=== PATIENT | female | born 1940 | race Caucasian/White ===

== ENCOUNTER 2017-05-12 13:34 | Emergency (ER) | payer MEDICARE, MEDICAID ==
--- NOTE | 2017-05-12 13:58 | ER Document Report ---
ED Medical Screen (RME) - General Chief Complaint: High Blood Pressure Stated Complaint: LEFT HAND INJURY Time Seen by Provider: 05/12/17 13:53 Mode of Arrival: Ambulatory Information source: Patient Notes: 76-year-old female with a history of hypertension and was referred to the emergency room for a laceration of the left hand. Apparently it hit the hand on an object. His pain to the left hand. TRAVEL OUTSIDE OF THE [place] IN LAST 30 DAYS: No - HPI Onset: Just prior to arrival Onset/Duration: Gradual Quality of pain: No pain Severity: None Pain Level: Denies Associated Symptoms: None Exacerbated by: Denies Relieved by: Denies Similar symptoms previously: No Recently seen / treated by doctor: No - Related Data Smoking: Non-smoker Frequency of alcohol use: None Drug Abuse: None Allergies/Adverse Reactions: No Known Allergies Allergy (Verified 05/12/17 13:38) Past Medical History - General Information source: Patient - Social History Cigarette use (# per day): No Chew tobacco use (# tins/day): No Frequency of alcohol use: None Drug Abuse: None Lives with: Family Family history: Reviewed & Not Pertinent - Past Medical History Cardiac Medical History: Reports: Hx Congestive Heart Failure, Hx Hypertension Pulmonary Medical History: Reports: Hx COPD EENT Medical History: Reports: None Neurological Medical History: Reports: None Endocrine Medical History: Reports: None Renal/ Medical History: Denies: Hx Peritoneal Dialysis Malignancy Medical History: Reports: None GI Medical History: Reports: None Musculoskeltal Medical History: Reports Hx Arthritis Psychiatric Medical History: Reports: None Surgical Hx: Other - Noncontributory Review of Systems - Review of Systems Constitutional: denies: Chills, Fever EENT: No symptoms reported Cardiovascular: No symptoms reported Respiratory: No symptoms reported Musculoskeletal: See HPI Physical Exam - Vital signs Vitals: Temp Pulse Resp BP Pulse Ox 97.8 F 67 18 246/68 H 93 05/12/17 13:38 05/12/17 13:38 05/12/17 13:38 05/12/17 13:38 05/12/17 13:38 Notes: Physical exam: GENERAL: 6-year-old female, alert and oriented 3, no acute distress HEAD: Atraumatic, normocephalic. EYES: Pupils equal round and reactive to light, extraocular movements intact, sclera anicteric, conjunctiva are normal. ENT: Moist mucous membranes. NECK: Normal range of motion, supple LUNGS: Breath sounds clear to auscultation bilaterally and equal. No wheezes rales or rhonchi. HEART: Regular rate and rhythm without murmurs, rubs or gallops. ABDOMEN: Soft, normoactive bowel sounds. No tenderness to palpation. No guarding, no rebound. No masses appreciated. EXTREMITIES: To the left hand without any hand tenderness to palpation. Patient does have significant swelling over the distal metacarpals to 3 and 4 on the left side extending over the MCP joints. There is normal range of motion and non-tenderness. Patient does have swelling over the distal right radius with full range of motion of the wrist and no tenderness to palpation. NEUROLOGICAL: Cranial nerves II through XII grossly intact. Normal speech, normal gait. PSYCH: Normal mood, normal affect. SKIN: Bruising to the right distal radius without any pain. Skin tear over the dorsal aspect of the left hand. It appears superficial. Course - Vital Signs Vital signs: Temp Pulse Resp BP Pulse Ox 97.8 F 70 19 214/144 H 95 05/12/17 13:38 05/12/17 15:10 05/12/17 15:10 05/12/17 15:10 05/12/17 15:10 Doctor's Discharge - Discharge Clinical Impression: left hand skin tear Condition: Stable Disposition: HOME, SELF-CARE Instructions: Skin Tear ([facility]) Additional Instructions: Note: Injury to the left hand is consistent with a skin tear. These generally are not amenable to stitching require time to heal. Continue current medicines. The emergency room in 2 days for wound check. Emergency room for any increased pain, swelling or concerns of infection: Increased redness, fever (temperature greater than 100.4). Pressure medicine when back at home Forms: Follow-Up (Wound) Referrals: KAIN GUAJARDO PA-C [Primary Care Provider] - Follow up as needed
--- NOTE | 2017-05-12 14:37 | RADIOLOGY REPORT (SQ) ---
EXAM DESCRIPTION: HAND LEFT 3 VIEWS COMPLETED DATE/TIME: 05/12/2017 2:09 pm REASON FOR STUDY: dorsal skin tear COMPARISON: None. EXAM PARAMETERS: NUMBER OF VIEWS: Three views. TECHNIQUE: AP, lateral and oblique radiographic images acquired of the left hand. LIMITATIONS: None. FINDINGS: MINERALIZATION: Normal. BONES: No acute fracture or dislocation. No worrisome bone lesions. JOINTS: No effusions. SOFT TISSUES: There is apparent soft tissue injury along the ulnar aspect of the hand. OTHER: No other significant finding. IMPRESSION: Soft tissue injury without evidence for fracture P TECHNICAL DOCUMENTATION: JOB ID: [id number] [employer]- All Rights Reserved
[2017-05-12 19:26] VITALS: BP 214/144
== END 2017-05-12 15:10 | disposition home or self-care (01) ==
LOC: ER 13:34
DX: S61.412A Laceration without foreign body of left hand, initial encounter (principal); S50.11XA Contusion of right forearm, initial encounter; W22.8XXA Striking against or struck by other objects, initial encounter; I10 Essential (primary) hypertension; J44.9 Chronic obstructive pulmonary disease, unspecified
CPT/HCPCS: 99283

== ENCOUNTER 2018-12-12 02:09 | Inpatient (IN) | payer MEDICARE, MEDICAID ==
[2018-12-12] MEDS ORDERED: ONDANSETRON 4 MG TAB.RAPDIS PO ONE (02:12)
[2018-12-12] MEDS ORDERED: ONDANSETRON HCL INJ/PF 4 MG/2 ML SDV IV ONE (03:33)
[2018-12-12 05:05] LABS: HEMATOCRIT 34.6 % (36.0-47.0); HEMOGLOBIN 12.3 g/dL (12.0-15.5); MEAN CORPUSCULAR HEMOGLOBIN 30.2 pg (27.0-33.4); MEAN CORPUSCULAR HGB CONC 35.6 g/dL (32.0-36.0); MEAN CORPUSCULAR VOLUME 85 fl (80-97); PLATELET COUNT 225 10^3/uL (150-450); RED BLOOD COUNT 4.09 10^6/uL (3.72-5.28); RED CELL DISTRIBUTION WIDTH 13.4 % (11.5-14.0); WHITE BLOOD COUNT 6.6 10^3/uL (4.0-10.5)
[2018-12-12 05:16] LABS: ALANINE AMINOTRANSFERASE 26 U/L (9-52); ALBUMIN 4.4 g/dL (3.5-5.0); ALKALINE PHOSPHATASE 142 U/L (38-126); ANION GAP 13 (5-19); ASPARTATE AMINO TRANSFERASE 58 U/L (14-36); BILIRUBIN,DIRECT 0.4 mg/dL (0.0-0.4); BILIRUBIN,TOTAL 0.8 mg/dL (0.2-1.3); BLOOD UREA NITROGEN 12 mg/dL (7-20); CALCIUM 9.4 mg/dL (8.4-10.2); CHLORIDE 61 mmol/L (98-107); GLUCOSE 122 mg/dL (75-110); POTASSIUM 4.4 mmol/L (3.6-5.0); TOTAL PROTEIN 7.8 g/dL (6.3-8.2)
[2018-12-12 05:33] LABS: ABSOLUTE LYMPHOCYTES# (MANUAL) 0.3 10^3/uL (0.5-4.7); ABSOLUTE MONOCYTES # (MANUAL) 0.4 10^3/uL (0.1-1.4); ABSOLUTE NEUTROPHILS# (MANUAL) 5.9 10^3/uL (1.7-8.2); BASOPHILS % (MANUAL) 0 % (0-2); EOSINOPHILS % (MANUAL) 1 % (0-6); LYMPHOCYTES % (MANUAL) 4 % (13-45); MONOCYTES % (MANUAL) 6 % (3-13); SEGMENTED NEUTROPHILS % (MAN) 89 % (42-78); TOTAL CELLS COUNTED 100
[2018-12-12 05:34] LABS: PLATELET COMMENT ADEQUATE; RBC MORPHOLOGY COMMENT NORMO-CYTIC/CHROMIC
[2018-12-12 05:52] LABS: CARBON DIOXIDE 40 mmol/L (22-30); SODIUM 113.8 mmol/L (137-145)
[2018-12-12] MEDS ORDERED: NORMAL SALINE 1000 ML 1,000 ML IV ONE (06:38)
[2018-12-12 06:40] LABS: APPEARANCE,URINE CLEAR; BILIRUBIN,URINE NEGATIVE (NEGATIVE); COLOR,URINE YELLOW; GLUCOSE, URINE 50 mg/dL (NEGATIVE); KETONES,URINE TRACE mg/dL (NEGATIVE); LEUKOCYTE ESTERASE,URINE NEGATIVE (NEGATIVE); NITRITE,URINE NEGATIVE (NEGATIVE); PROTEIN,URINE 100 mg/dL (NEGATIVE); URINE SPECIFIC GRAVITY 1.011; UROBILINOGEN,URINE NEGATIVE mg/dL (<2.0)
--- NOTE | 2018-12-12 08:30 | RADIOLOGY REPORT (SQ) ---
EXAM DESCRIPTION: CT ABD/PELVIS WITH IV ONLY COMPLETED DATE/TIME: 12/12/2018 8:07 am REASON FOR STUDY: LLQ pain, vomiting and diarrhea COMPARISON: None. TECHNIQUE: CT scan of the abdomen and pelvis performed using helical scanning technique with dynamic intravenous contrast injection. No oral contrast. Images reviewed with lung, soft tissue, and bone windows. Reconstructed coronal and sagittal MPR images reviewed. Delayed images for evaluation of the urinary system also acquired. All images stored on PACS. All CT scanners at this facility use dose modulation, iterative reconstruction, and/or weight based d osing when appropriate to reduce radiation dose to as low as reasonably achievable (ALARA). [facility]: Dose Right [facility]: CareDose [facility]: Dose Right [facility]: Teradose 4D [facility]: [employer] CONTRAST TYPE AND DOSE: contrast/concentration: Isovue 350.00 mg/ml; Total Contrast Delivered: 67.0 ml; Total Saline Delivered: 45.0 ml RENAL FUNCTION: GFR > 60. RADIATION DOSE: CT Rad equipment meets quality standard of care and radiation dose reduction techniq ues were employed. CTDIvol: 6.0 - 8.4 mGy. DLP: 671 mGy-cm.. LIMITATIONS: None. FINDINGS: LOWER CHEST: There is a partially imaged ground-glass nodule of the right lung base on the most superior image of the axis series (series 3, image 1). LIVER: There are ill-defined, low-attenuation lesions of the liver. SPLEEN: Normal size. No focal lesions. PANCREAS: No masses. No significant calcifications. No adjacent inflammation or peripancreatic fluid collections. Pancreatic duct not dilated. GALLBLADDER: Tiny calcified gallstones or calcified sludge. ADRENAL GLANDS: No significant masses or asymmetry. RIGHT KIDNEY AND URETER: No solid masses. No significant calcifications. No hydronephrosis or hyd roureter. LEFT KIDNEY AND URETER: No solid masses. No significant calcifications. No hydronephrosis or hydr oureter. AORTA AND VESSELS: No aneurysm. No dissection. Renal arteries, SMA, celiac without stenosis. RETROPERITONEUM: No retroperitoneal adenopathy, hemorrhage or masses. BOWEL AND PERITONEAL CAVITY: Small hiatal hernia. No masses or inflammatory changes. No free fluid or peritoneal masses. APPENDIX: Normal. PELVIS: No mass. No free fluid. Normal bladder. Pessary present in the vagina. ABDOMINAL WALL: No masses. No hernias. BONES: There is extensive sclerotic osseous metastatic disease with high-grade wedge deformity of the T12 vertebral body and superior endplate deformity the L2 vertebral body. These findings are new co mpared to most recent prior radiographs of the lumbar spine dated 04/08/2013 although age indeterminate . OTHER: No other significant finding. IMPRESSION: 1. No acute CT findings to explain abdominal pain. 2. Advanced metastatic malignancy with extensive sclerotic osseous metastatic disease and probable l iver masses, primary lesion not identified on this examination. Correlate with clinical history. 3. High-grade wedge deformity of the T12 vertebral body and superior endplate deformity the L2 verte bral body, presumably pathologic secondary to metastatic malignancy. These findings are new compared to most recent prior radiographs of the lumbar spine dated 04/08/2013 although age indeterminate. TECHNICAL DOCUMENTATION: JOB ID: [id number] Quality ID # [id number]: Final reports with documentation of one or more dose reduction techniques (e.g., Au tomated exposure control, adjustment of the mA and/or kV according to patient size, use of iterative reconstruction technique) 2010 [employer]- All Rights Reserved Reading location - IP/workstation name: [email or web address]
--- NOTE | 2018-12-12 09:36 | ER Document Report ---
Entered by NICHO DENNISON SCRIBE 12/12/18 0716 Acting as scribe for:JAYNE JACOB DO ED GI/ - General Chief Complaint: Nausea/Vomiting Stated Complaint: VOMITING,ABDOMINAL PAIN Time Seen by Provider: 12/12/18 06:10 Notes: 7-year-old female who presents to the emergency department today with complaints of vomiting and diarrhea since 1830 last evening. Granddaughter at bedside states that the patient feels like "she is not going to the bathroom" but every time she does she is having watery diarrhea. Granddaughter also states that the patient has been doing a "chewing motion like she has bubblegum" for the last day which is new for her. Granddaughter states that the patient "feels warm" but denies any fevers. Granddaughter denies any blood in the vomit/diarrhea or usage of diuretics. TRAVEL OUTSIDE OF THE [place] IN LAST 30 DAYS: No - Related Data Allergies/Adverse Reactions: No Known Allergies Allergy (Verified 12/12/18 04:46) Past Medical History - General Information source: Patient - Social History Smoking Status: Unknown if Ever Smoked Frequency of alcohol use: None Drug Abuse: None Family History: Reviewed & Not Pertinent Patient has suicidal ideation: No Patient has homicidal ideation: No - Past Medical History Cardiac Medical History: Reports: Hx Congestive Heart Failure, Hx Hypertension Pulmonary Medical History: Reports: Hx COPD GI Medical History: Reports: Hx Gastroesophageal Reflux Disease Musculoskeletal Medical History: Reports Hx Arthritis Psychiatric Medical History: Reports: Hx Depression Past Surgical History: Reports: Hx Cardiac Surgery - stent x 4, Hx Mastectomy - bilat. - Immunizations Hx Diphtheria, Pertussis, Tetanus Vaccination: Yes Review of Systems - Review of Systems Constitutional: denies: Fever EENT: No symptoms reported Cardiovascular: No symptoms reported Respiratory: No symptoms reported Gastrointestinal: See HPI, Diarrhea, Vomiting. denies: Blood in vomit Genitourinary: No symptoms reported Female Genitourinary: No symptoms reported Musculoskeletal: No symptoms reported Skin: No symptoms reported Hematologic/Lymphatic: No symptoms reported Neurological/Psychological: No symptoms reported -: Yes All other systems reviewed and negative Physical Exam - Vital signs Vitals: Temp Pulse Resp BP Pulse Ox 98.5 F 70 20 208/69 H 100 12/12/18 02:11 12/12/18 02:11 12/12/18 02:11 12/12/18 02:11 12/12/18 02:11 - Notes Notes: PHYSICAL EXAM GENERAL: Alert, interacts well. No acute distress. Continuous chewing and smacking of the gums, stops with smiling and tongue protrusion. HEAD: Normocephalic, atraumatic. EYES: Pupils equal, round, and reactive to light. Extraocular movements intact. ENT: Oral mucosa moist, tongue midline. NECK: Full range of motion. Supple. Trachea midline. LUNGS: Clear to auscultation bilaterally, no wheezes, rales, or rhonchi. No respiratory distress. HEART: Regular rate and rhythm. No murmurs, gallops, or rubs. ABDOMEN: Soft, suprapubic and left lower quadrant tenderness with palpation. Non-distended. Bowel sounds present in all 4 quadrants. No guarding, rigidity, or rebound. EXTREMITIES: Moves all 4 extremities spontaneously. No edema, radial and dorsalis pedis pulses 2/4 bilaterally. No cyanosis. NEUROLOGICAL: Believes it is 1999 and is unable to name the president, alert to place and person. Normal speech. Cranial nerves II through XII grossly intact. No facial droop, tongue protrudes midline. PSYCH: Normal affect, normal mood. SKIN: Warm, dry, normal turgor. No hair growth on lower extremities, skin changes consistent with neuropathy and decreased circulation from diabetes mellitus. Course - Re-evaluation Re-evalutation: 12/12/18 09:28 If you have a pharmacy by EMS director medical safety is director software quality assurance CBC unremarkable, CMP shows markedly low sodium at 113.8, elevated CO2 at 40, glucose is actually normal at 122, LFTs show an AST of 58 and alkaline phosphatase at 142. Urinalysis is trace ketones otherwise unremarkable. CT scan of the abdomen pelvis was ordered due to vomiting and diarrhea as well as abdominal pain in the 77-year-old lady it was also ordered to look for metastatic disease in the setting of hyponatremia and some to his cancer. It did not show any infection but it did show extensive metastatic disease both in the bones and in the liver. Patient's breast cancer was fully treated 14 years ago, she previously saw Dr. Engel and would like to see Dr. Engel again. I did notify her nurse of the pending consult. I also discussed the patient with Dr. Bhatt who agreed to accept the patient to his service on the telemetry care unit. Initially patient was gently treated with normal saline to help to start correcting her sodium. I do not see any acute alteration in her mental status that would necessitate immediate treatment with hypertonic saline. She is oriented to person and place but not to time. The lipsmacking does resolve with prompting. I do not think this is a seizure equivalent at this time. Family also states that her mental status has been improving. - Vital Signs Vital signs: Temp Pulse Resp BP Pulse Ox 98.3 F 70 14 130/48 H 100 12/12/18 07:11 12/12/18 02:11 12/12/18 16:01 12/12/18 16:01 12/12/18 14:01 - Laboratory Result Diagrams: 12/12/18 04:36 12/12/18 04:36 Laboratory results interpreted by me: 12/12/18 12/12/18 12/12/18 04:36 04:36 06:25 Hct 34.6 L Seg Neuts % (Manual) 89 H Lymphocytes % (Manual) 4 L Abs Lymphs (Manual) 0.3 L Sodium 113.8 L* Chloride 61 L Carbon Dioxide 40 H* Creatinine 0.46 L Glucose 122 H AST 58 H Alkaline Phosphatase 142 H Urine Protein 100 H Urine Glucose (UA) 50 H Urine Ketones TRACE H Discharge - Discharge Clinical Impression: Hyponatremia, Metastases to the liver, Nausea vomiting and diarrhea Condition: Fair Disposition: ADMITTED INPATIENT Admitting Provider: Hospitalist - [facility] Unit Admitted: Telemetry Scribe Attestation: 12/12/18 16:36 I personally performed the services described in the documentation, reviewed and edited the documentation which was dictated to the scribe in my presence, and it accurately records my words and actions. I personally performed the services described in the documentation, reviewed and edited the documentation which was dictated to the scribe in my presence, and it accurately records my words and actions.
[2018-12-12] MEDS ORDERED: ACETAMINOPHEN 325 MG TABLET PO PRN (13:23)
[2018-12-12] MEDS ORDERED: NORMAL SALINE 1000 ML 1,000 ML IV PRN (13:23)
[2018-12-12] MEDS: HEPARIN SOD (PORCINE) 5,000 UNIT/ML 1 ML SYRINGE SUBCUT SCH ×2 (14:27→22:29)
[2018-12-12] MEDS ORDERED: IPRATROPIUM/ALBUTEROL 0.5-2.5 MG/3 ML AMPUL NEB PRN ×2 (18:26→19:32)
[2018-12-12] MEDS ORDERED: (PENDING PHARMACY ID) (Azilsartan Med/Chlorthalidone [Edarbyclor 40-12.5 Mg Tablet] 1 TAB) PO SCH (19:00)
[2018-12-12] MEDS ORDERED: HYDRALAZINE HCL INJ/PF 20 MG/1 ML SDV IV ONE (19:00)
[2018-12-12] MEDS: FAMOTIDINE 20 MG TABLET PO SCH (19:09)
[2018-12-12] MEDS: LANSOPRAZOLE 30 MG TAB.RAP.DR PO SCH (19:09)
[2018-12-12] MEDS ORDERED: ALBUTEROL SULFATE 0.083% NEB 2.5 MG/3 ML AMPUL NEB PRN (19:57)
--- NOTE | 2018-12-12 20:19 | PDOC H&P ---
History of Present Illness Admission Date/PCP: 12/12/18 09:48 Vincenzo sow Patient complains of: Altered balance, vomiting, diarrhea and lip smacking History of Present Illness: RUDDY MACIEL is a 77 year old female who presented to her primary care physician about 4 weeks ago for breathing issues. A chest x-ray was done. Several lesions identified in the spine area. The patient did undergo a follow- up MRI of the spine and this revealed abnormalities. At that time the patient did have blood work. Her primary care provider told her that her sodium was low. He suggested salt tablets. Unfortunately the patient developed gait imbalance and confusion. She was experiencing diarrhea and vomiting. Assessment in the hospital revealed a sodium of 113.8. CT scan of the abdomen and pelvis showed multiple metastatic lesions. The patient will be admitted for hyponatremia. Past Medical History Cardiac Medical History: Reports: Congestive Heart Failure, Hypertension Pulmonary Medical History: Reports: Chronic Obstructive Pulmonary Disease (COPD) Endocrine Medical History: Reports: None Renal/ Medical History: Reports: None Malignancy Medical History: Reports: Breast Cancer GI Medical History: Reports: Gastroesophageal Reflux Disease, Other - Rectal prolapse Musculoskeltal Medical History: Reports: Arthritis Psychiatric Medical History: Reports: Depression Past Surgical History Past Surgical History: Reports: Mastectomy - bilat., Orthopedic Surgery - Foot surgery Social History Information Source: Patient, Relative Lives with: Family Smoking Status: Former Smoker Last Time Smoked: 14 years ago Frequency of Alcohol Use: None Hx Recreational Drug Use: No Drugs: None Hx Prescription Drug Abuse: No - Advance Directive Resuscitation Status: Full Code Surrogate healthcare decision maker:: Unfortunately, despite the patient's daughter being a hospice nurse, she was unable to decide on a CODE STATUS. Because there was in decision by default the patient will be a full code. She did say that in the past she believed that her mother wanted no heroic measures. I will have palliative care see the patient. Family History Family History: Malignancy - Multiple relatives affected. Different cancers including colon, throat and breast Parental Family History Reviewed: Yes Children Family History Reviewed: Yes Sibling(s) Family History Reviewed.: Yes Medication/Allergy Home Medications: Albuterol Sulfate [Proair HFA Inhalation Aerosol 8.5 gm MDI] 2 puff IH Q4 12/12/18 Atorvastatin Calcium [Lipitor 20 mg Tablet] 20 mg PO DAILY 12/12/18 Azilsartan Med/Chlorthalidone [Edarbyclor 40-12.5 mg Tablet] 1 tab PO DAILY 12/12/18 Citalopram Hydrobromide [Celexa 10 mg Tablet] 10 mg PO DAILY 12/12/18 Esomeprazole Magnesium 40 mg PO DAILY 12/12/18 Ipratropium/Albuterol Sulfate [Duoneb 3 ml Ampul] 3 ml NEB Q6HP PRN 12/12/18 Metoprolol Tartrate [Lopressor 25 mg Tablet] 25 mg PO Q12 12/12/18 Ranitidine HCl [Zantac 150 mg Tablet] 150 mg PO BID 12/12/18 Allergies/Adverse Reactions: No Known Allergies Allergy (Verified 12/12/18 04:46) Review of Systems ROS unobtainable: Due to mental status, Other - Some information obtained from the patient's daughter Constitutional: PRESENT: as per HPI Cardiovascular: ABSENT: chest pain, edema Respiratory: ABSENT: cough, dyspnea Gastrointestinal: PRESENT: vomiting Neurological: PRESENT: abnormal movements, confusion, lack of coordination Psychiatric: PRESENT: depression Physical Exam Vital Signs: Temp Pulse Resp BP Pulse Ox 98.0 F 77 17 190/70 H 98 12/12/18 16:39 12/12/18 16:39 12/12/18 16:39 12/12/18 16:39 12/12/18 16:39 Intake & Output 12/11/18 12/12/18 12/13/18 06:59 06:59 06:59 Intake Total 1000 Balance 1000 Weight 59.4 kg 59.4 kg Exam: Very frail-appearing 77-year-old female who was just medicated and was sleeping soundly. She did not awaken to jostling at the shoulder. Head exam: PRESENT: normocephalic Eye exam: PRESENT: other - Unable to assess Ear exam: PRESENT: normal external ear exam Mouth exam: PRESENT: other - Unable to assess Teeth exam: PRESENT: other - Unable to assess Throat exam: PRESENT: other - Unable to assess Neck exam: PRESENT: other - Unable to assess Respiratory exam: PRESENT: clear to auscultation eleonora, decreased breath sounds. ABSENT: rales, stridor Cardiovascular exam: PRESENT: RRR, +S1, +S2 GI/Abdominal exam: PRESENT: normal bowel sounds, soft Rectal exam: PRESENT: deferred Extremities exam: ABSENT: pedal edema Musculoskeletal exam: PRESENT: normal inspection Neurological exam: PRESENT: other - Patient just medicated and sleeping. Unable to assess Psychiatric exam: PRESENT: other - As above Results Laboratory Results: 12/12/18 04:36 12/12/18 04:36 12/12/18 12/12/18 12/12/18 04:36 04:36 06:25 WBC 6.6 RBC 4.09 Hgb 12.3 Hct 34.6 L MCV 85 MCH 30.2 MCHC 35.6 RDW 13.4 Plt Count 225 Seg Neutrophils % Not Reportable Lymphocytes % Not Reportable Monocytes % Not Reportable Eosinophils % Not Reportable Basophils % Not Reportable Absolute Neutrophils Not Reportable Absolute Lymphocytes Not Reportable Absolute Monocytes Not Reportable Absolute Eosinophils Not Reportable Absolute Basophils Not Reportable Sodium 113.8 L* Potassium 4.4 Chloride 61 L Carbon Dioxide 40 H* Anion Gap 13 BUN 12 Creatinine 0.46 L Est GFR ( Amer) > 60 Est GFR (Non-Af Amer) > 60 Glucose 122 H Calcium 9.4 Total Bilirubin 0.8 AST 58 H ALT 26 Alkaline Phosphatase 142 H Total Protein 7.8 Albumin 4.4 Urine Color YELLOW Urine Appearance CLEAR Urine pH 8.0 Ur Specific [place] 1.011 Urine Protein 100 H Urine Glucose (UA) 50 H Urine Ketones TRACE H Urine Blood NEGATIVE Urine Nitrite NEGATIVE Ur Leukocyte Esterase NEGATIVE Urine WBC (Auto) 1 Urine RBC (Auto) 9 Urine Osmolality 12/12/18 06:25 WBC RBC Hgb Hct MCV MCH MCHC RDW Plt Count Seg Neutrophils % Lymphocytes % Monocytes % Eosinophils % Basophils % Absolute Neutrophils Absolute Lymphocytes Absolute Monocytes Absolute Eosinophils Absolute Basophils Sodium Potassium Chloride Carbon Dioxide Anion Gap BUN Creatinine Est GFR ( Amer) Est GFR (Non-Af Amer) Glucose Calcium Total Bilirubin AST ALT Alkaline Phosphatase Total Protein Albumin Urine Color Urine Appearance Urine pH Ur Specific [place] Urine Protein Urine Glucose (UA) Urine Ketones Urine Blood Urine Nitrite Ur Leukocyte Esterase Urine WBC (Auto) Urine RBC (Auto) Urine Osmolality 421 Impressions: Abdomen/Pelvis CT 12/12/18 06:38 IMPRESSION: 1. No acute CT findings to explain abdominal pain. 2. Advanced metastatic malignancy with extensive sclerotic osseous metastatic disease and probable liver masses, primary lesion not identified on this examination. Correlate with clinical history. 3. High-grade wedge deformity of the T12 vertebral body and superior endplate deformity the L2 vertebral body, presumably pathologic secondary to metastatic malignancy. These findings are new compared to most recent prior radiographs of the lumbar spine dated 04/08/2013 although age indeterminate. Assessment & Plan - Diagnosis (1) Hyponatremia Is this a current diagnosis for this admission?: Yes Plan: Clearly this is a chronic issue. The question is whether it has been decreasing slowly (which is more likely the case) or it was mild and then experienced a precipitous drop. We will institute a fluid restriction and utilize normal saline. If we do not make any progress we may use slightly hypertonic saline (1.5%). I do not want to volume overload the patient. Urine sodium, urine osmolality and electrolytes every 6 hours have been ordered. With the discovery of multiple metastases I will order a CT scan of the brain. She did have IV contrast for the CT scan this morning and so I will wait 1-2 days. Brain metastases would be an obvious cause. In addition she is on a selective serotonin reuptake inhibitor and this in fact can cause hyponatremia. (2) Metastatic breast cancer Is this a current diagnosis for this admission?: Yes Plan: With the patient's primary diagnosis of breast cancer 14 years ago it is hard to know if the diffusely metastatic disease present currently originated from her breast cancer or a new primary. The patient did see Dr. Engel for her breast cancer. The emergency room physician did talk to Dr. Engel and she has agreed to see the patient therefore I did place a consult. A palliative care consult has been ordered. There was no discussion with the patient's family regarding advanced care planning despite discovering metastatic disease several weeks ago. (3) Acute encephalopathy Is this a current diagnosis for this admission?: Yes Plan: Secondary to severe hyponatremia. As noted above we will obtain a CT scan of the head as rain metastases are a significant possibility. (4) Hypertension Qualifiers: Hypertension type: essential hypertension Qualified Code(s): I10 - Essential (primary) hypertension Is this a current diagnosis for this admission?: Yes Plan: The patient's metoprolol will be continued. The second medication, which is a combination of an angiotensin receptor lance and chlorthalidone, is not available here. I will substitute 50 mg of losartan daily and 12.5 mg of chlorthalidone. We will continue her metoprolol. (5) Chronic obstructive pulmonary disease Qualifiers: COPD type: unspecified COPD Qualified Code(s): J44.9 - Chronic obstructive pulmonary disease, unspecified Is this a current diagnosis for this admission?: Yes Plan: I placed the patient on scheduled nebulizer therapy as well as as needed medications. Continue to monitor respiratory status. Supplemental oxygen if needed. (6) Depression Qualifiers: Depression Type: unspecified Qualified Code(s): F32.9 - Major depressive disorder, single episode, unspecified Is this a current diagnosis for this admission?: Yes Plan: The patient is on citalopram 10 mg daily. This is a small dose and discontinuing it abruptly should not instigate serotonin syndrome. Because SSRI medications can cause hyponatremia I have temporarily held her citalopram. (7) Nausea vomiting and diarrhea Is this a current diagnosis for this admission?: Yes Plan: Possibly secondary to the hyponatremia. Antiemetics will be initiated. (8) Gastroesophageal reflux disease Qualifiers: Esophagitis presence: esophagitis presence not specified Qualified Code(s): K21.9 - Gastro-esophageal reflux disease without esophagitis Is this a current diagnosis for this admission?: Yes Plan: At home the patient is on a proton pump inhibitor as well as H2 blockers. Formulary substitution here will be the lansoprazole and famotidine as opposed to her S omeprazole and ranitidine. - Time Time Spent: 50 to 70 Minutes Medications reviewed and adjusted accordingly: Yes - Inpatient Certification Based on my medical assessment, after consideration of the patient's comorb idities, presenting symptoms, or acuity I expect that the services needed warrant INPATIENT care.: Yes I certify that my determination is in accordance with my understanding of Medicare's requirements for reasonable and necessary INPATIENT services [42 CFR 412.3e].: Yes Medical Necessity: Need Close Monitoring Due to Risk of Patient Decompensation, Need For IV Fluids, Need for Nebulizer Therapy and Monitoring of Response, Risk of Complication if Not Cared For in Hospital
[2018-12-12] MEDS ORDERED: LOSARTAN POTASSIUM 25 MG TABLET PO ONE (20:30)
[2018-12-12] MEDS: IPRATROPIUM/ALBUTEROL 0.5-2.5 MG/3 ML AMPUL NEB SCH (21:18)
[2018-12-12 21:55] LABS: BLOOD UREA NITROGEN 13 mg/dL (7-20); CALCIUM 8.6 mg/dL (8.4-10.2); CARBON DIOXIDE 37 mmol/L (22-30); CHLORIDE 65 mmol/L (98-107); GLUCOSE 123 mg/dL (75-110); POTASSIUM 4.1 mmol/L (3.6-5.0)
[2018-12-12 21:57] LABS: ANION GAP 9 (5-19)
[2018-12-12] MEDS ORDERED: METOPROLOL TARTRATE 25 MG TABLET PO SCH (22:00)
[2018-12-12] MEDS ORDERED: ALBUTEROL SULFATE HFA (90 MCG/PUFF) 200 PUFF/8.5 GM MDI IH SCH (22:00)
[2018-12-12 22:05] LABS: SODIUM 110.8 mmol/L (137-145)
[2018-12-12] MEDS: ATORVASTATIN CALCIUM 20 MG TABLET PO SCH (22:27)
[2018-12-12] MEDS: METOPROLOL TARTRATE 25 MG TABLET PO SCH (22:27)
[2018-12-12] MEDS: ACETAZOLAMIDE 250 MG TABLET PO SCH (22:31)
[2018-12-12] MEDS ORDERED: SODIUM BICARBONATE 650 MG TABLET PO ONE (23:15)
[2018-12-13] MEDS ORDERED: SODIUM BICARBONATE 650 MG TABLET PO ONE (02:15)
[2018-12-13] MEDS: IPRATROPIUM/ALBUTEROL 0.5-2.5 MG/3 ML AMPUL NEB SCH ×4 (02:18→21:59)
[2018-12-13 04:29] LABS: ABSOLUTE LYMPHOCYTES (AUTO) 0.3 10^3/uL (0.5-4.7); ABSOLUTE MONOCYTES (AUTO) 0.6 10^3/uL (0.1-1.4); ABSOLUTE NEUT (AUTO) 4.6 10^3/uL (1.7-8.2); EOSINOPHILS % (AUTO) 0.2 % (0-6); HEMOGLOBIN 10.3 g/dL (12.0-15.5); LYMPHOCYTES % (AUTO) 5.2 % (13-45); MEAN CORPUSCULAR HGB CONC 35.4 g/dL (32.0-36.0); MEAN CORPUSCULAR VOLUME 85 fl (80-97); MONOCYTES % (AUTO) 10.6 % (3-13); PLATELET COUNT 193 10^3/uL (150-450); RED BLOOD COUNT 3.42 10^6/uL (3.72-5.28); RED CELL DISTRIBUTION WIDTH 13.3 % (11.5-14.0); TOTAL CELLS COUNTED % (AUTO) 100 %; WHITE BLOOD COUNT 5.5 10^3/uL (4.0-10.5)
[2018-12-13 04:54] LABS: BLOOD UREA NITROGEN 13 mg/dL (7-20); CALCIUM 8.6 mg/dL (8.4-10.2); CARBON DIOXIDE 37 mmol/L (22-30); CHLORIDE 65 mmol/L (98-107); GLUCOSE 112 mg/dL (75-110); POTASSIUM 3.9 mmol/L (3.6-5.0)
[2018-12-13 04:56] LABS: ANION GAP 9 (5-19)
[2018-12-13 05:10] LABS: SODIUM 111.2 mmol/L (137-145)
[2018-12-13] MEDS: HEPARIN SOD (PORCINE) 5,000 UNIT/ML 1 ML SYRINGE SUBCUT SCH ×3 (05:16→21:58)
[2018-12-13 06:46] LABS: APPEARANCE,URINE CLOUDY; BILIRUBIN,URINE NEGATIVE (NEGATIVE); COLOR,URINE YELLOW; GLUCOSE, URINE NEGATIVE (NEGATIVE); KETONES,URINE NEGATIVE (NEGATIVE); LEUKOCYTE ESTERASE,URINE LARGE (NEGATIVE); NITRITE,URINE NEGATIVE (NEGATIVE); PROTEIN,URINE 100 mg/dL (NEGATIVE); URINE SPECIFIC GRAVITY 1.016; UROBILINOGEN,URINE NEGATIVE mg/dL (<2.0)
[2018-12-13] MEDS ORDERED: CHLORTHALIDONE 25 MG TABLET PO SCH (10:00)
[2018-12-13] MEDS ORDERED: LISINOPRIL 5 MG TABLET PO SCH (10:00)
[2018-12-13] MEDS ORDERED: (PENDING PHARMACY ID) (Citalopram Hydrobromide [Celexa 10 Mg Tablet] 10 MG) PO SCH (10:00)
[2018-12-13] MEDS ORDERED: SODIUM BICARBONATE 650 MG TABLET PO SCH (10:00)
[2018-12-13] MEDS ORDERED: ATORVASTATIN CALCIUM 20 MG TABLET PO SCH (10:00)
[2018-12-13] MEDS: LOSARTAN POTASSIUM 50 MG TABLET PO SCH (10:40)
[2018-12-13] MEDS: ACETAZOLAMIDE 250 MG TABLET PO SCH ×2 (10:42→22:02)
[2018-12-13] MEDS: LANSOPRAZOLE 30 MG TAB.RAP.DR PO SCH ×2 (10:43→18:50)
[2018-12-13] MEDS: FAMOTIDINE 20 MG TABLET PO SCH ×2 (10:43→18:50)
[2018-12-13] MEDS: METOPROLOL TARTRATE 25 MG TABLET PO SCH ×2 (10:43→21:59)
[2018-12-13 12:18] LABS: BLOOD UREA NITROGEN 13 mg/dL (7-20); CALCIUM 8.8 mg/dL (8.4-10.2); CARBON DIOXIDE 38 mmol/L (22-30); CHLORIDE 64 mmol/L (98-107); GLUCOSE 107 mg/dL (75-110); POTASSIUM 4.1 mmol/L (3.6-5.0)
[2018-12-13 12:20] LABS: ANION GAP 11 (5-19)
[2018-12-13] MEDS: SODIUM CHLORIDE 1 GM TABLET PO SCH ×2 (15:12→18:50)
[2018-12-13 15:59] LABS: ANION GAP 10 (5-19); BLOOD UREA NITROGEN 13 mg/dL (7-20); CALCIUM 8.8 mg/dL (8.4-10.2); CARBON DIOXIDE 38 mmol/L (22-30); CHLORIDE 65 mmol/L (98-107); GLUCOSE 127 mg/dL (75-110); POTASSIUM 3.8 mmol/L (3.6-5.0)
[2018-12-13 16:05] LABS: SODIUM 113.1 mmol/L (137-145)
[2018-12-13] MEDS: ATORVASTATIN CALCIUM 20 MG TABLET PO SCH (21:58)
[2018-12-14] MEDS: IPRATROPIUM/ALBUTEROL 0.5-2.5 MG/3 ML AMPUL NEB SCH ×2 (02:26→09:01)
--- NOTE | 2018-12-14 05:12 | PDOC PROGRESS REPORT ---
Subjective Progress Note for:: 12/13/18 Subjective:: Somnolent with brief periods of interaction Reason For Visit: METASTATIC MALIGNANCY,HYPONAREMIA Physical Exam Vital Signs: Temp Pulse Resp BP Pulse Ox 97.9 F 59 L 16 141/59 H 100 12/13/18 20:24 12/14/18 02:00 12/13/18 20:24 12/13/18 20:24 12/13/18 20:24 Intake & Output 12/12/18 12/13/18 12/14/18 06:59 06:59 06:59 Intake Total 1480 900 Output Total 1600 Balance 1480 -700 Weight 59.4 kg 59.4 kg General appearance: PRESENT: no acute distress Respiratory exam: PRESENT: clear to auscultation eleonora. ABSENT: rales, rhonchi, wheezes Cardiovascular exam: PRESENT: RRR, +S1, +S2 GI/Abdominal exam: PRESENT: normal bowel sounds, soft. ABSENT: tenderness Neurological exam: PRESENT: altered - Very somnolent Results Laboratory Results: 12/13/18 04:08 12/13/18 15:30 12/13/18 12/13/18 12/13/18 03:00 04:08 11:35 Sodium 111.2 L* 113.0 L* Potassium 3.9 4.1 Chloride 65 L 64 L Carbon Dioxide 37 H 38 H Anion Gap 9 11 BUN 13 13 Creatinine 0.65 0.68 Est GFR ( Amer) > 60 > 60 Est GFR (Non-Af Amer) > 60 > 60 Glucose 112 H 107 Calcium 8.6 8.8 Urine Color YELLOW Urine Appearance CLOUDY Urine pH 6.0 Ur Specific [place] 1.016 Urine Protein 100 H Urine Glucose (UA) NEGATIVE Urine Ketones NEGATIVE Urine Blood SMALL H Urine Nitrite NEGATIVE Ur Leukocyte Esterase LARGE H Urine WBC (Auto) 131 Urine RBC (Auto) 5 12/13/18 15:30 Sodium 113.1 L* Potassium 3.8 Chloride 65 L Carbon Dioxide 38 H Anion Gap 10 BUN 13 Creatinine 0.73 Est GFR ( Amer) > 60 Est GFR (Non-Af Amer) > 60 Glucose 127 H Calcium 8.8 Urine Color Urine Appearance Urine pH Ur Specific [place] Urine Protein Urine Glucose (UA) Urine Ketones Urine Blood Urine Nitrite Ur Leukocyte Esterase Urine WBC (Auto) Urine RBC (Auto) Impressions: Abdomen/Pelvis CT 12/12/18 06:38 IMPRESSION: 1. No acute CT findings to explain abdominal pain. 2. Advanced metastatic malignancy with extensive sclerotic osseous metastatic disease and probable liver masses, primary lesion not identified on this examination. Correlate with clinical history. 3. High-grade wedge deformity of the T12 vertebral body and superior endplate deformity the L2 vertebral body, presumably pathologic secondary to metastatic malignancy. These findings are new compared to most recent prior radiographs of the lumbar spine dated 04/08/2013 although age indeterminate. Assessment & Plan - Diagnosis (1) Hyponatremia Is this a current diagnosis for this admission?: Yes Plan: No significant change. We will add salt tablets and consider hypertonic solutions. (2) Metastatic breast cancer Is this a current diagnosis for this admission?: Yes Plan: Dr. Engel had ordered an MRI scan of the brain to see if metastatic disease was present. This certainly would account for the severe hyponatremia. The patient declined. Many family members were present including 1 son and 1 daughter. We reviewed potential treatment strategies and discussed considering what the patient would want in this situation. Palliative care has been consulted. (3) Acute encephalopathy Is this a current diagnosis for this admission?: Yes Plan: Unchanged (4) Hypertension Qualifiers: Hypertension type: essential hypertension Qualified Code(s): I10 - Essential (primary) hypertension Is this a current diagnosis for this admission?: Yes (5) Chronic obstructive pulmonary disease Qualifiers: COPD type: unspecified COPD Qualified Code(s): J44.9 - Chronic obstructive pulmonary disease, unspecified Is this a current diagnosis for this admission?: Yes (6) Depression Qualifiers: Depression Type: unspecified Qualified Code(s): F32.9 - Major depressive disorder, single episode, unspecified Is this a current diagnosis for this admission?: Yes (7) Nausea vomiting and diarrhea Is this a current diagnosis for this admission?: Yes Plan: Improved (8) Gastroesophageal reflux disease Qualifiers: Esophagitis presence: esophagitis presence not specified Qualified Code(s): K21.9 - Gastro-esophageal reflux disease without esophagitis Is this a current diagnosis for this admission?: Yes - Time Time Spent with patient: 15-24 minutes Medications reviewed and adjusted accordingly: Yes
[2018-12-14] MEDS: SODIUM CHLORIDE 1 GM TABLET PO SCH (10:47)
[2018-12-14] MEDS: LOSARTAN POTASSIUM 50 MG TABLET PO SCH (10:47)
[2018-12-14] MEDS: FAMOTIDINE 20 MG TABLET PO SCH (10:47)
[2018-12-14] MEDS: LANSOPRAZOLE 30 MG TAB.RAP.DR PO SCH (10:47)
[2018-12-14] MEDS: METOPROLOL TARTRATE 25 MG TABLET PO SCH (10:48)
[2018-12-14] MEDS: ACETAZOLAMIDE 250 MG TABLET PO SCH (10:48)
--- NOTE | 2018-12-14 11:18 | PDOC DISCHARGE SUMMARY ---
General - Admit/Disc Date/PCP Admission Date/Primary Care Provider: 12/12/18 09:48 Discharge Date: 12/14/18 - Discharge Diagnosis (1) Hyponatremia Is this a current diagnosis for this admission?: Yes Summary: Patient was noted to be hyponatremic when she visited her primary care physician several weeks ago. Unfortunately despite using salt tablets the condition progressed. Her sodium on admission was down to 113. She was also found to have metastatic malignancy. Mental status changes could be related to brain metastases however the patient refused an MRI of the brain. The patient is going home with hospice. I would continue sodium chloride 1 g 3 times a day with meals as well as sodium bicarbonate 650 mg twice daily. I would recheck electrolytes in 4-5 days. (2) Metastatic breast cancer Is this a current diagnosis for this admission?: Yes (3) Acute encephalopathy Is this a current diagnosis for this admission?: Yes Summary: Hyponatremia would be a significant contributing factor. With underlying metastatic malignancy brain metastases are also possible. Slight improvement since admission noted. (4) Hypertension Is this a current diagnosis for this admission?: Yes Summary: Will return to prior medications with the exception of metoprolol. I have asked the metoprolol to be reduced to 1/2 tablet twice daily due to borderline bradycardia. (5) Chronic obstructive pulmonary disease Is this a current diagnosis for this admission?: Yes Summary: Continue respiratory treatments as before (6) Depression Is this a current diagnosis for this admission?: Yes Summary: Continue antidepressant. There is a small chance that the antidepressant could be contributing to the hyponatremia. At this point, as she is going home on hospice, keeping her from becoming more depressed is a greater benefit at this time. (7) Nausea vomiting and diarrhea Is this a current diagnosis for this admission?: Yes Summary: Resolved. (8) Gastroesophageal reflux disease Is this a current diagnosis for this admission?: Yes Summary: Continue proton pump inhibitor and H2 lance at home. - Additional Information Resuscitation Status: Do Not Resuscitate Discharge Diet: Regular Discharge Activity: Activity As Tolerated Prescriptions: Sodium Bicarbonate [Sodium Bicarbonate 650 mg Tablet] 650 mg PO BID 30 Days #60 tablet Sodium Chloride [Sodium Chloride 1 gm Tablet] 1 gm PO TID 30 Days #90 tablet Home Medications: Albuterol Sulfate [Proair HFA Inhalation Aerosol 8.5 gm MDI] 2 puff IH Q4 12/12/18 Atorvastatin Calcium [Lipitor 20 mg Tablet] 20 mg PO DAILY 12/12/18 Azilsartan Med/Chlorthalidone [Edarbyclor 40-12.5 mg Tablet] 1 tab PO DAILY 12/12/18 Citalopram Hydrobromide [Celexa 10 mg Tablet] 10 mg PO DAILY 12/12/18 Esomeprazole Magnesium 40 mg PO DAILY 12/12/18 Ipratropium/Albuterol Sulfate [Duoneb 3 ml Ampul] 3 ml NEB Q6HP PRN 12/12/18 Ranitidine HCl [Zantac 150 mg Tablet] 150 mg PO BID 12/12/18 Metoprolol Tartrate [Lopressor 25 mg Tablet] 25 mg PO Q12 #0 12/14/18 Sodium Bicarbonate [Sodium Bicarbonate 650 mg Tablet] 650 mg PO BID 30 Days #60 tablet 12/14/18 Sodium Chloride [Sodium Chloride 1 gm Tablet] 1 gm PO TID 30 Days #90 tablet 12/14/18 History of Present Illness Patient complains of: Slightly more awake today. Initial complaint included encephalopathy as well as weakness, nausea and vomiting. History of Present Illness: RUDDY MACIEL is a 77 year old female who presented to her primary care physician about 4 weeks ago for breathing issues. A chest x-ray was done. Several lesions identified in the spine area. The patient did undergo a follow- up MRI of the spine and this revealed abnormalities. At that time the patient did have blood work. Her primary care provider told her that her sodium was low. He suggested salt tablets. Unfortunately the patient developed gait imbalance and confusion. She was experiencing diarrhea and vomiting. Assessment in the hospital revealed a sodium of 113.8. CT scan of the abdomen and pelvis showed multiple metastatic lesions. The patient will be admitted for hyponatremia. Hospital Course Hospital Course: The patient had an unremarkable hospital course. Conservative measures to slowly improve sodium levels were not very effective. Sodium bicarbonate and sodium chloride tablets were instituted. Unfortunately, workup for another reason revealed metastatic lesions noted on chest x-ray. CT scan revealed diffuse metastases in the abdomen as well. The encephalopathy and hyponatremia would fit with brain metastases. After discussions with the family, and considering the patient's previous wishes, no further treatment for malignancy will be pursued. She will go home with hospice as per her wish. Physical Exam Vital Signs: Temp Pulse Resp BP Pulse Ox 97.9 F 59 L 16 141/59 H 100 12/13/18 20:24 12/14/18 02:00 12/13/18 20:24 12/13/18 20:24 12/13/18 20:24 Intake & Output 12/13/18 12/14/18 12/15/18 06:59 06:59 06:59 Intake Total 1480 900 Output Total 1600 Balance 1480 -700 Weight 59.4 kg General appearance: PRESENT: no acute distress Exam: Very frail-appearing 77-year-old female being helped to the chair by her daughter. Head exam: PRESENT: normocephalic Respiratory exam: PRESENT: clear to auscultation eleonora, symmetrical, unlabored. ABSENT: rales, rhonchi, wheezes Cardiovascular exam: PRESENT: RRR, +S1, +S2 GI/Abdominal exam: PRESENT: normal bowel sounds, soft Neurological exam: PRESENT: altered - Still with altered mental status. Responsive to her daughter intermittently. Psychiatric exam: ABSENT: agitated, anxious Results Laboratory Results: 12/13/18 04:08 12/13/18 15:30 12/13/18 12/13/18 11:35 15:30 Sodium 113.0 L* 113.1 L* Potassium 4.1 3.8 Chloride 64 L 65 L Carbon Dioxide 38 H 38 H Anion Gap 11 10 BUN 13 13 Creatinine 0.68 0.73 Est GFR ( Amer) > 60 > 60 Est GFR (Non-Af Amer) > 60 > 60 Glucose 107 127 H Calcium 8.8 8.8 Impressions: Abdomen/Pelvis CT 12/12/18 06:38 IMPRESSION: 1. No acute CT findings to explain abdominal pain. 2. Advanced metastatic malignancy with extensive sclerotic osseous metastatic disease and probable liver masses, primary lesion not identified on this examination. Correlate with clinical history. 3. High-grade wedge deformity of the T12 vertebral body and superior endplate deformity the L2 vertebral body, presumably pathologic secondary to metastatic malignancy. These findings are new compared to most recent prior radiographs of the lumbar spine dated 04/08/2013 although age indeterminate. Qualifiers - * PATIENT BEING DISCHARGED WITH ANY OF THE FOLLOWING DIAGNOSIS: No Plan Discharge Plan: The patient will be discharged to home with home hospice. Despite the hospice designation the patient's daughter (who is a hospice nurse) wishes her to be a full code at this time. I have complied with those wishes. Time Spent: Greater than 30 Minutes
[2018-12-14 11:55] VITALS: BP 120/60
== END 2018-12-14 12:22 | disposition hospice, home (50) | DRG 641 ==
LOC: ER 02:09 → EH 09:48 → 4W 16:45
PROVIDERS: ADMIT Internal Medicine; ATTEND Internal Medicine
PROC: 3E0F73Z Introduction of Anti-inflammatory into Respiratory Tract, Via Natural or Artificial Opening (ICD-10-PCS; principal; 2018-12-12)
DX: E87.1 Hypo-osmolality and hyponatremia (principal); C79.81 Secondary malignant neoplasm of breast; G93.40 Encephalopathy, unspecified; C78.7 Secondary malignant neoplasm of liver and intrahepatic bile duct; J44.9 Chronic obstructive pulmonary disease, unspecified; F32.9 Major depressive disorder, single episode, unspecified; K21.9 Gastro-esophageal reflux disease without esophagitis; I50.9 Heart failure, unspecified; I11.0 Hypertensive heart disease with heart failure; M19.90 Unspecified osteoarthritis, unspecified site; Z95.5 Presence of coronary angioplasty implant and graft; Z79.899 Other long term (current) drug therapy; Z90.13 Acquired absence of bilateral breasts and nipples; Z87.891 Personal history of nicotine dependence; Z80.0 Family history of malignant neoplasm of digestive organs; Z80.3 Family history of malignant neoplasm of breast
CPT/HCPCS: 36415; 74177; 80048; 80053; 81001; 83935; 84300; 85025; 94640; 96361; 96374; 99285; J0360; J1644; J2405; J3490; J7030; J7620